=== PATIENT | female | born 1995 | race African-American/Black ===

== ENCOUNTER 2021-12-10 08:24 | Day surgery (SDC) | payer MEDICAID ==
[~2021-12-10] VITALS: Ht 162.6 cm; Wt 103.4 kg
[2021-12-10 09:13] LABS: HCG,QUAL RESULT NEGATIVE (NEGATIVE)
[2021-12-10] MEDS ORDERED: ROCURONIUM BROMIDE 10 MG/ML (ZEMURON) IV ONE (10:33)
[2021-12-10] MEDS ORDERED: NS IRRIG SOLN 1000 ML IR ONE (10:33)
[2021-12-10] MEDS ORDERED: fentaNYL CITRATE/PF 100 MCG/2 ML AMP IVP ONE (10:33)
[2021-12-10] MEDS ORDERED: DESFLURANE 15 MIN GAS INH ONE (10:33)
[2021-12-10] MEDS ORDERED: LR 1,000 ML IV.SOLN IV ONE (10:33)
[2021-12-10] MEDS ORDERED: METOPROLOL TARTRATE 5 MG/5 ML VIAL IVP ONE (10:33)
[2021-12-10] MEDS ORDERED: SUGAMMADEX SODIUM 200 MG/2 ML VIAL IV ONE (10:33)
[2021-12-10] MEDS ORDERED: DEXAMETHASONE SOD PHOSPHATE 4 MG/ML VIAL IVP ONE (10:33)
[2021-12-10] MEDS ORDERED: BUPIVACAINE /EPINEPHRINE/PF 0.25% 30 ML VIAL INJ ONE (10:33)
[2021-12-10] MEDS ORDERED: MIDAZOLAM HCL 5 MG/5 ML VIAL IVP ONE (10:33)
[2021-12-10] MEDS ORDERED: PROPOFOL 200MG/ 20ML VIAL (DIPRIVAN) IV ONE (10:33)
[2021-12-10] MEDS ORDERED: ONDANSETRON HCL 4 MG/2 ML VIAL IVP ONE (10:33)
[2021-12-10] MEDS ORDERED: LIDOCAINE 2%, 20 ML MDV INJ ONE (10:33)
[2021-12-10] MEDS ORDERED: hydrALAZINE HCL 20 MG/ML VIAL IVP PRN (10:45)
[2021-12-10] MEDS ORDERED: LR 1,000 ML IV SCH (10:45)
[2021-12-10] MEDS ORDERED: METOCLOPRAMIDE HCL 10 MG/2 ML VIAL IVP PRN (10:45)
[2021-12-10] MEDS ORDERED: MEPERIDINE HCL/PF 25 MG/ML DISP.SYRIN IVP PRN (10:45)
[2021-12-10] MEDS ORDERED: HYDROmorphone 1 MG/ML INJ. CARTRIDGE IVP PRN (10:45)
[2021-12-10] MEDS ORDERED: LABETALOL 100 MG/ 20ML VIAL IVP PRN (10:45)
[2021-12-10] MEDS ORDERED: ACETAMINOPHEN I.V. 1000 MG 100 ML IV ONE (11:12)
[2021-12-10] MEDS ORDERED: HYDROmorphone 1 MG/ML INJ. CARTRIDGE ONE (12:52)
[2021-12-10] MEDS: HYDROmorphone 1 MG/ML INJ. CARTRIDGE IVP PRN ×2 (12:52→13:30)
[2021-12-10 17:49] VITALS: BP_SYST 132
== END 2021-12-10 15:00 | disposition home or self-care (01) ==
LOC: SOR 08:24 → SMU 08:34 → SOR 15:00
PROVIDERS: ATTEND Otolaryngology
DX: J35.01 Chronic tonsillitis (principal); J35.3 Hypertrophy of tonsils with hypertrophy of adenoids; Z88.1 Allergy status to other antibiotic agents; E66.01 Morbid (severe) obesity due to excess calories; Z79.899 Other long term (current) drug therapy
CPT/HCPCS: 36415; 87426; 42821; 84703; 88304; J3490 ×3; J1100; J2001; J2250; J2405; J2704; J3010; J1170; J7120; J0131

== ENCOUNTER 2023-05-20 13:01 | Emergency (ER) | payer MEDICAID, OTHER ==
[~2023-05-20] VITALS: Ht 162.6 cm; Wt 117.9 kg
[2023-05-20 13:08] VITALS: BP_SYST 141; PULSE 88; RESP 17; TEMP 98.3; O2SAT 98
[2023-05-20] MEDS ORDERED: AZIT500T3 PO (13:42)
[2023-05-20] MEDS ORDERED: METH-776 PO (13:43)
[2023-05-20 13:54] LABS: BASOPHILS % (AUTO) 0.8 % (0.0-2.0); EOSINOPHILS # (AUTO) 0.1 K/uL (0.0-0.4); EOSINOPHILS % (AUTO) 2.2 % (0.0-4.0); HEMATOCRIT 40.4 % (36-48); HEMOGLOBIN 13.4 g/dL (12.0-16.0); LYMPHOCYTES % (AUTO) 48.3 % (20.5-51.5); MEAN CORPUSCULAR HEMOGLOBIN 26 pg (27-31); MEAN CORPUSCULAR HGB CONC 33 % (32-36); MEAN CORPUSCULAR VOLUME 77 fL (79.0-98.0); MONOCYTES # (AUTO) 0.3 K/uL (0.0-1.0); MONOCYTES % (AUTO) 8.2 % (1.7-9.3); NEUTROPHILS # (AUTO) 1.7 K/uL (1.8-7.7); NEUTROPHILS % (AUTO) 40.5 % (40.0-70.0); PLATELET COUNT (AUTO) 345 K/uL (130-430); RED BLOOD CELL COUNT(AUTO) 5.23 MIL/uL (4.2-6.2); RED CELL DISTRIBUTION WIDTH 16.1 % (9.0-15.0); WHITE BLOOD COUNT (AUTO) 4.2 K/uL (4.8-10.8)
[2023-05-20 13:56] LABS: CREATININE 0.74 mg/dL (0.55-1.30)
[2023-05-20 14:08] VITALS: BP_SYST 141; PULSE 88; RESP 17; TEMP 98.3; O2SAT 98
== END 2023-05-20 14:07 | disposition home or self-care (01) ==
LOC: SED 13:01
DX: J40 Bronchitis, not specified as acute or chronic (principal); R06.02 Shortness of breath; Z88.1 Allergy status to other antibiotic agents; Z88.2 Allergy status to sulfonamides; Z91.018 Allergy to other foods; Z79.899 Other long term (current) drug therapy
CPT/HCPCS: 36415; 71045; 80048; 85025; 99284